=== PATIENT | female | born 1960 | race Caucasian/White ===

== ENCOUNTER 2024-12-14 13:47 | Outpatient (CLI) | payer BC | END 2024-12-14 13:48 | disposition home or self-care (01) | LOC: SCSRAD 13:47 | PROVIDERS: ATTEND Family Medicine | DX: M25.551 Pain in right hip (principal) ==

== ENCOUNTER 2025-07-16 09:59 | Day surgery (SDC) | payer BC ==
[2025-07-15 09:57] VITALS: BMI 29.9
[2025-07-16] MEDS ORDERED: Heparin 5,000 UNITS/ML VIAL ONE (10:48)
[2025-07-16] MEDS ORDERED: CEFAZOLIN 2 GM VIAL ONE (10:48)
[2025-07-16] MEDS ORDERED: Bupivacaine 0.25% HCL 30 ML VIAL ONE (10:54)
[2025-07-16] MEDS ORDERED: Lidocaine 1% (PF) 30 ML VIAL ONE (10:55)
[2025-07-16] MEDS ORDERED: Lidocaine 1% PF 5 ML VIAL ONE (11:29)
[2025-07-16] MEDS ORDERED: PROPOFOL 20 ML ONE (11:29)
[2025-07-16] MEDS ORDERED: Ondansetron PF 4 MG/2 ML Vial ONE (11:29)
[2025-07-16] MEDS ORDERED: fentaNYL PF 100 MCG/2 ML SYRINGE ONE ×2 (11:29→12:10)
[2025-07-16] MEDS ORDERED: Lidocaine 2% 6 ML (Jelly) SYR ONE (11:41)
[2025-07-16] MEDS ORDERED: PHENYLEPHRINE-NS 100 MCG/ML 10 ML SYRINGE ONE (12:00)
[2025-07-16] MEDS ORDERED: Tranexamic Acid 1,000 MG/10 ML VIAL ONE ×2 (12:41→16:02)
[2025-07-16] MEDS ORDERED: HYDROmorphone 2 MG/ML VIAL ONE (15:04)
[2025-07-16] MEDS ORDERED: Rocuronium Bromide 10 MG/ML (10ML VIAL) ONE (15:44)
[2025-07-16] MEDS ORDERED: SUGAMMADEX SODIUM 200 MG/2 ML VIAL ONE ×2 (16:10→16:23)
[2025-07-16] MEDS ORDERED: Ketorolac Tromethamine 30 MG (1 mL) VIAL ONE (16:51)
== END 2025-07-16 18:45 | disposition home or self-care (01) ==
LOC: SDC 09:59
PROVIDERS: ATTEND Plastic Surgery
PROC: 0HBV0ZZ Excision of Bilateral Breast, Open Approach (ICD-10-PCS; principal; 2025-07-16)
DX: N62 Hypertrophy of breast (principal); Z88.1 Allergy status to other antibiotic agents; Z88.2 Allergy status to sulfonamides; M19.90 Unspecified osteoarthritis, unspecified site; Z79.899 Other long term (current) drug therapy
CPT/HCPCS: 88305; J0169; J0665; J1100; J1171; J1580; J1644; J1885; J2250; J2405; J2704; J3010; J3373